=== PATIENT | male | born 1975 | race Hispanic/Latino ===

== ENCOUNTER 2017-12-02 15:25 | Emergency (ER) | payer MEDICAID, OTHER ==
[2017-12-02 15:31] VITALS: TEMP 98.4; O2SAT 97
--- NOTE | 2017-12-02 16:34 | ED PDOC ---
HPI: Psych/Substance Abuse Time Seen by Provider: 12/02/17 16:32 Chief Complaint (Nursing): Alcohol Ingestion Chief Complaint (Provider): Alcohol Ingestion History Per: Patient History/Exam Limitations: no limitations Onset/Duration Of Symptoms: Hrs Modifying Factor(s): Alcohol Additional Complaint(s): 42 y/o male presents to the ED for alcohol intoxication. Patient appears drunk and covered in feces. Patient also admits to drinking today. Patient states he had a seizure earlier today. Patient reports of taking 200 mg of Dilatin BID. Patient states he has not taking today's dose of medication. No acute injury noted. PMD: None Provided Past Medical History Reviewed: Historical Data, Nursing Documentation, Vital Signs Vital Signs: Last Vital Signs Temp 98.4 F 12/02/17 15:28 Pulse 92 H 12/02/17 15:28 Resp 18 12/02/17 15:28 BP 115/69 12/02/17 15:28 Pulse Ox 97 12/02/17 15:28 - Medical History PMH: Seizures (related to etoh use) - Surgical History Surgical History: No Surg Hx - Family History Family History: States: Unknown Family Hx - Home Medications Home Medications: Ambulatory Orders Medication Instructions Recorded Unobtainable [Unobtainable] 12/30/14 - Allergies Allergies/Adverse Reactions: Allergies Allergy/AdvReac Type Severity Reaction Status Date / Time No Known Allergies Allergy Verified 01/15/15 21:21 Review of Systems ROS Statement: Except As Marked, All Systems Reviewed And Found Negative Neurological: Positive for: Seizures Psych: Positive for: Other (EtOH Intoxication) Physical Exam - Reviewed Nursing Documentation Reviewed: Yes Vital Signs Reviewed: Yes - Physical Exam Appears: Positive for: No Acute Distress Head Exam: Positive for: ATRAUMATIC Skin: Positive for: Normal Color Eye Exam: Positive for: Normal appearance Neck: Positive for: Normal Cardiovascular/Chest: Negative for: Bradycardia, Tachycardia Respiratory: Negative for: Accessory Muscle Use, Respiratory Distress Extremity: Positive for: Normal ROM Neurologic/Psych: Positive for: Alert, Oriented (x3), Other (Mild slurred speech. ). Negative for: Motor/Sensory Deficits - ECG O2 Sat by Pulse Oximetry: 97 (RA) Pulse Ox Interpretation: Normal - Progress ED Course And Treament: As per ED pharmacist, patient has no record of dilantin use recorded. Patient observed in ED with improving clinical sobriety. Noted with steady gait. Medical Decision Making Medical Decision Making: Plan: --review pharmacy records of patient's medications. Scribe Attestation: Documented by Krissy Morales, acting as a scribe for Giorgio Arita PA-C. Provider Scribe Attestation: All medical record entries made by the Scribe were at my direction and personally dictated by me. I have reviewed the chart and agree that the record accurately reflects my personal performance of the history, physical exam, medical decision making, and the department course for this patient. I have also personally directed, reviewed, and agree with the discharge instructions and disposition. Disposition - Clinical Impression Clinical Impression: Alcohol ingestion - Patient ED Disposition Is Patient to be Admitted: No - Disposition Referrals: [facility] [Outside] Disposition: Routine/Home Disposition Time: 00:04 Condition: FAIR Instructions: Alcohol Abuse and Alcoholism (DC)
[2017-12-03 00:17] VITALS: BP 128/79; PULSE 80; RESP 16
== END 2017-12-03 00:17 | disposition home or self-care (01) ==
LOC: H.ER 15:25
DX: F10.10 Alcohol abuse, uncomplicated (principal); R56.9 Unspecified convulsions

== ENCOUNTER 2018-04-16 17:27 | Emergency (ER) | payer SELFPAY ==
--- NOTE | 2018-04-16 17:51 | ED PDOC ---
HPI: General Adult Time Seen by Provider: 04/16/18 17:46 Chief Complaint (Nursing): Medical Clearance Chief Complaint (Provider): medical clearance History Per: Patient (42 y/o male homeless here for medical clearance prior to incarceration. Denies any complaints. STates he has h/o seizures and is on medications for this dilantin/librium. ) Past Medical History Reviewed: Historical Data, Nursing Documentation, Vital Signs Vital Signs: Last Vital Signs Temp 97.4 F L 04/16/18 17:28 Pulse 89 04/16/18 17:28 Resp 18 04/16/18 17:28 BP 114/76 04/16/18 17:28 Pulse Ox 100 04/16/18 17:28 - Medical History PMH: Seizures (related to etoh use) - Family History Family History: States: Unknown Family Hx - Home Medications Home Medications: Ambulatory Orders Medication Instructions Recorded Unobtainable 12/30/14 - Allergies Allergies/Adverse Reactions: Allergies Allergy/AdvReac Type Severity Reaction Status Date / Time No Known Allergies Allergy Verified 04/16/18 17:28 Review of Systems ROS Statement: Except As Marked, All Systems Reviewed And Found Negative Physical Exam - Reviewed Nursing Documentation Reviewed: Yes Vital Signs Reviewed: Yes - Physical Exam Appears: Positive for: Well, Non-toxic, No Acute Distress Head Exam: Positive for: ATRAUMATIC, NORMAL INSPECTION, NORMOCEPHALIC Skin: Positive for: Normal Color, Warm, DRY Eye Exam: Positive for: EOMI, Normal appearance, PERRL ENT: Positive for: Normal ENT Inspection Neck: Positive for: Normal, Painless ROM Cardiovascular/Chest: Positive for: Regular Rate, Rhythm Respiratory: Positive for: CNT, Normal Breath Sounds Gastrointestinal/Abdominal: Positive for: Normal Exam, Soft Back: Positive for: Normal Inspection Extremity: Positive for: Normal ROM Neurologic/Psych: Positive for: Alert, Oriented - ECG O2 Sat by Pulse Oximetry: 100 Disposition - Clinical Impression Clinical Impression: Medical clearance for incarceration - Patient ED Disposition Is Patient to be Admitted: No - Disposition Disposition: [facility] Disposition Time: 17:50 Condition: FAIR Additional Instructions: PATIENT IS MEDICALLY AND PSYCHIATRICALLY CLEARED FOR INCARCERATION Instructions: General (DC) Forms: [facility] ED School/Work Excuse
[2018-04-16 18:57] VITALS: BP 116/78; PULSE 78; RESP 19; TEMP 97.6; O2SAT 98
== END 2018-04-16 18:57 | disposition home or self-care (01) ==
LOC: H.ER 17:27
DX: R56.9 Unspecified convulsions (principal); Z59.0 Homelessness